=== PATIENT | male | born 1935 | race Caucasian/White ===

== ENCOUNTER 2020-11-30 10:34 | Inpatient (IN) | payer MEDICARE, OTHER ==
[~2020-11-30] VITALS: Ht 172.7 cm; Wt 92.0 kg
[~2020-11-30 10:34] MED LIST: AMLO-150 PO; DICL50TA4 PO; FINA5TAB4 PO; FOLI1TAB47 PO; LORA-446 PO; LORA10TA75 PO; OXYB5TAB10 PO; PSYL0.5215 PO; TRAZ-175 PO
[2020-11-30 11:49] VITALS: BP 125/77
[2020-11-30] MEDS ORDERED: ALPRAZOLAM PO (11:53)
[2020-11-30] MEDS ORDERED: SIMVASTATIN PO (11:53)
[2020-11-30] MEDS ORDERED: CHLORHEXIDINE 15 ML UDC ONE (11:54)
[2020-11-30] MEDS ORDERED: CHLORHEXIDINE 15 ML UDC MM ONE (12:00)
[2020-11-30] MEDS ORDERED: LACTATED RINGERS 1,000 ML IV SCH (12:00)
[2020-11-30] MEDS ORDERED: DEXAMETHASONE 4 MG/ML, 1ML ONE ×2 (13:26)
[2020-11-30] MEDS ORDERED: ROCURONIUM 10MG/ML,5ML ONE (13:26)
[2020-11-30] MEDS ORDERED: FENTANYL PF 250 MCG/5ML ONE (13:26)
[2020-11-30] MEDS ORDERED: PROPOFOL 10 MG/ML, 20ML ONE (13:26)
[2020-11-30] MEDS ORDERED: SUCCINYLCHOLINE 20 MG/ML, 10ML ONE (13:26)
[2020-11-30] MEDS ORDERED: GEMCITABINE HCL IV ONE (13:30)
[2020-11-30] MEDS ORDERED: LIDOCAINE-MPF 2% ,5ML ONE (13:30)
[2020-11-30] MEDS ORDERED: SODIUM CHLORIDE 0.9% IV ONE (13:30)
[2020-11-30] MEDS ORDERED: CEFAZOLIN 1,000 MG ONE ×2 (13:33→13:50)
[2020-11-30] MEDS ORDERED: ONDANSETRON 2MG/ML, 2ML ONE ×2 (13:50)
[2020-11-30] MEDS ORDERED: MEPERIDINE/PF 25MG/0.5ML IVPush PRN (14:00)
[2020-11-30] MEDS ORDERED: EPHEDRINE 50 MG/ML, 1ML IVPush PRN (14:00)
[2020-11-30] MEDS ORDERED: hydrALAzine 20 MG/ML, 1ML IV PRN (14:00)
[2020-11-30] MEDS ORDERED: ALBUTEROL SULFATE 2.5 MG/3 ML NPPB PRN (14:00)
[2020-11-30] MEDS ORDERED: MIDAZOLAM 1 MG/ML, 2ML IV PRN (14:00)
[2020-11-30] MEDS ORDERED: DIAZEPAM 5 MG/ML, 2ML IVPush PRN (14:00)
[2020-11-30] MEDS ORDERED: HYDROmorphone 1 MG/ML, 1ML INJ IVPush PRN (14:00)
[2020-11-30] MEDS ORDERED: PROMETHAZINE 25 MG/ML, 1ML IVPush PRN (14:00)
[2020-11-30] MEDS ORDERED: PROMETHAZINE 12.5 MG SUPP PR PRN (14:00)
[2020-11-30] MEDS ORDERED: OXYcodone 5 MG/5 ML ORAL.SOL UDC PO PRN (14:00)
[2020-11-30] MEDS ORDERED: ONDANSETRON 2MG/ML, 2ML IVPush PRN ×2 (14:00→14:30)
[2020-11-30] MEDS ORDERED: LABETALOL 5MG/ML, 20ML IV PRN (14:00)
[2020-11-30] MEDS ORDERED: DIPHENHYDRAMINE 50 MG/ML, 1ML IVPush PRN ×2 (14:00)
[2020-11-30] MEDS ORDERED: OPIUM/BELLADONNA SUPP.RECT 16.2-30 MG ONE (14:13)
[2020-11-30] MEDS ORDERED: LORATADINE 10 MG TABLET PO PRN (14:30)
[2020-11-30] MEDS: OPIUM/BELLADONNA SUPP.RECT 16.2-30 MG PR PRN (14:43)
[2020-11-30] MEDS ORDERED: FENTANYL PF 100 MCG/2ML ONE (14:45)
[2020-11-30] MEDS ORDERED: OXYcodone 5 MG/5 ML ORAL.SOL UDC ONE (14:46)
[2020-11-30] MEDS: FENTANYL PF 100 MCG/2ML IV PRN ×2 (14:48→14:55)
[2020-11-30] MEDS: CIPROFLOXACIN/PMX 400MG/200ML 200 ML IVPB SCH (17:22)
[2020-11-30] MEDS: D5%-LACTATED RINGERS 1,000 ML IV SCH (17:22)
[2020-11-30] MEDS ORDERED: ALPRazolam 1MG TAB PO SCH (17:30)
[2020-11-30 18:42] VITALS: BP 133/83
[2020-11-30] MEDS ORDERED: TRAZODONE 100MG TABLET PO SCH (21:00)
[2020-12-01 01:25] VITALS: BP 111/67
[2020-12-01] MEDS: OPIUM/BELLADONNA SUPP.RECT 16.2-30 MG PR PRN ×2 (02:14→14:22)
[2020-12-01] MEDS: D5%-LACTATED RINGERS 1,000 ML IV SCH (04:19)
[2020-12-01] MEDS: CIPROFLOXACIN/PMX 400MG/200ML 200 ML IVPB SCH (04:23)
[2020-12-01 06:54] VITALS: BP 133/71
[2020-12-01] MEDS ORDERED: FOLIC ACID PO SCH (09:00)
[2020-12-01] MEDS ORDERED: OXYBUTYNIN CHLORIDE 5 MG TABLET PO SCH (09:00)
[2020-12-01] MEDS ORDERED: MULTIVITS MIN PO SCH (09:00)
[2020-12-01] MEDS ORDERED: LUT PO SCH (09:00)
[2020-12-01] MEDS ORDERED: DOCUSATE 100 MG CAPSULE PO PRN (09:00)
[2020-12-01] MEDS ORDERED: SIMVASTATIN PO SCH (09:00)
[2020-12-01] MEDS ORDERED: DICLOFENAC 50 MG TABLET.DR PO SCH (09:00)
[2020-12-01] MEDS ORDERED: FINASTERIDE 5 MG TABLET PO SCH (09:00)
[2020-12-01] MEDS ORDERED: AMLODIPINE 5 MG TABLET PO SCH (09:00)
[2020-12-01] MEDS ORDERED: LORazepam 1MG TABLET PO SCH (09:00)
[2020-12-01] MEDS ORDERED: DOCUSATE 100 MG CAPSULE ONE (09:04)
[2020-12-01 13:27] VITALS: BP 107/65
== END 2020-12-01 14:39 | disposition home or self-care (01) | DRG 670 ==
LOC: OUT 10:34 → 4NW 14:06 → DCLOUNGE 12-01 14:32
PROVIDERS: ADMIT Urology; ATTEND Urology
PROC: 0TBB3ZX Excision of Bladder, Percutaneous Approach, Diagnostic (ICD-10-PCS; 2020-11-30)
PROC: 3E0K805 Introduction of Other Antineoplastic into Genitourinary Tract, Via Natural or Artificial Opening Endoscopic (ICD-10-PCS; 2020-11-30)
PROC: 0TBC8ZZ Excision of Bladder Neck, Via Natural or Artificial Opening Endoscopic (ICD-10-PCS; principal; 2020-11-30 13:00)
DX: D49.4 Neoplasm of unspecified behavior of bladder (principal)
CPT/HCPCS: 88305; G0378; J0690; J0744; J1100; J2405; J2704; J3010; J0330; J7120; J7121; J9201

== ENCOUNTER → 2021-05-02 | Outpatient (CLI) | payer MEDICARE, OTHER ==
[~2021-05-02] MED LIST changes: +ALPRAZOLAM PO; +SIMV20TA19 PO; +SIMVASTATIN PO
[2021-05-02 15:11] LABS: BASOPHILS % (AUTO) 1 % (0-1); EOSINOPHILS % (AUTO) 1 % (1-7); LYMPHOCYTES % (AUTO) 17 % (22-44); MEAN CORPUSCULAR HEMOGLOBIN 31.3 pg (27.5-34.5); MEAN CORPUSCULAR HGB CONC 33.5 g/dL (33.2-36.2); MONOCYTES % (AUTO) 10 % (2-9); NEUTROPHILS % (AUTO) 72 % (42-75); PLATELET COUNT 301 x10^3/uL (130-400); RED BLOOD COUNT 4.86 x10^6/uL (4.38-5.82); RED CELL DISTRIBUTION WIDTH 13.7 % (9.4-14.8)
[2021-05-02 15:16] LABS: CALCIUM 8.9 mg/dL (8.5-10.1); CREATININE 1.61 mg/dL (0.7-1.3)
[2021-05-02 15:24] LABS: CHLORIDE 108 mmol/L (98-107)
[2021-05-02 15:25] LABS: ANION GAP 4 mmol/L (5-15)
[2021-05-02 15:44] LABS: MICROSCOPIC INDICATED
[2021-05-02 15:44] LABS: INTERNATIONAL NORMALIZED RATIO 0.98 (0.93-1.1); PROTHROMBIN TIME 10.5 Seconds (9.6-11.5)
== END | disposition home or self-care (01) ==
LOC: STAR 13:59
PROVIDERS: ATTEND Urology
DX: Z01.818 Encounter for other preprocedural examination (principal); C67.9 Malignant neoplasm of bladder, unspecified
CPT/HCPCS: 36415; 80048; 81001; 85025; 85610; 85730; 87086; 93005

== ENCOUNTER 2021-05-06 13:44 | Inpatient (IN) | payer MEDICARE, OTHER ==
[~2021-05-06] VITALS: Ht 172.7 cm; Wt 87.0 kg
[2021-05-06] MEDS ORDERED: CHLORHEXIDINE 15 ML UDC ONE (14:18)
[2021-05-06] MEDS ORDERED: LACTATED RINGERS 1,000 ML IV SCH (14:30)
[2021-05-06] MEDS ORDERED: SODIUM CHLORIDE 0.9% PF 10ML ONE (16:18)
[2021-05-06] MEDS ORDERED: FENTANYL PF 100 MCG/2ML ONE ×3 (16:21→19:03)
[2021-05-06] MEDS ORDERED: CEFAZOLIN 1,000 MG ONE (16:23)
[2021-05-06] MEDS ORDERED: ONDANSETRON 2MG/ML, 2ML ONE ×2 (16:23→19:04)
[2021-05-06] MEDS ORDERED: ROCURONIUM 10MG/ML,5ML ONE (16:23)
[2021-05-06] MEDS ORDERED: NEOSTIGMINE 1 MG/ML, 10ML ONE (16:23)
[2021-05-06] MEDS ORDERED: GLYCOPYRROLATE 0.2MG/1ML, 5ML ONE (16:23)
[2021-05-06] MEDS ORDERED: PROPOFOL 10 MG/ML, 20ML ONE (16:23)
[2021-05-06] MEDS ORDERED: SUCCINYLCHOLINE 20 MG/ML, 10ML ONE (16:23)
[2021-05-06] MEDS ORDERED: DEXAMETHASONE 4 MG/ML, 1ML ONE (16:23)
[2021-05-06] MEDS ORDERED: HYDROmorphone 1 MG/ML, 1ML INJ IVPush PRN ×2 (16:30→23:00)
[2021-05-06] MEDS ORDERED: ACETAMINOPHEN 325 MG TABLET PO PRN ×2 (16:30→17:30)
[2021-05-06] MEDS ORDERED: OXYcodone 5 MG/5 ML ORAL.SOL UDC PO PRN ×2 (16:30→17:30)
[2021-05-06] MEDS ORDERED: PROMETHAZINE 25 MG/ML, 1ML IVPush PRN (16:30)
[2021-05-06] MEDS ORDERED: LABETALOL 5MG/ML, 20ML IV PRN ×2 (16:30→17:30)
[2021-05-06] MEDS ORDERED: FENTANYL PF 100 MCG/2ML IV PRN (16:30)
[2021-05-06] MEDS ORDERED: EPHEDRINE 50 MG/ML, 1ML IVPush PRN (16:30)
[2021-05-06] MEDS ORDERED: GEMCITABINE HCL 1,000 MG in SODIUM CHLORIDE 0.9% 23.7 ML IS ONE (16:30)
[2021-05-06] MEDS ORDERED: ONDANSETRON 2MG/ML, 2ML IVPush PRN (16:30)
[2021-05-06] MEDS ORDERED: hydrALAzine 20 MG/ML, 1ML IV PRN ×2 (16:30→17:30)
[2021-05-06] MEDS ORDERED: FLUORESCEIN SODIUM 500 MG/5 ML ONE (17:07)
[2021-05-06] MEDS ORDERED: HYDROmorphone 2 MG/ML, 1ML IVPush PRN (17:30)
[2021-05-06] MEDS ORDERED: DIAZEPAM 5 MG/ML, 2ML IVPush PRN (17:30)
[2021-05-06] MEDS ORDERED: ALBUTEROL SULFATE 2.5 MG/3 ML NPPB PRN (17:30)
[2021-05-06] MEDS ORDERED: MEPERIDINE/PF 25MG/0.5ML IVPush PRN (17:30)
[2021-05-06] MEDS ORDERED: PROMETHAZINE 25 MG/ML, 1ML IV PRN (17:30)
[2021-05-06] MEDS ORDERED: KETOROLAC 30 MG/1 ML IV PRN (17:30)
[2021-05-06] MEDS ORDERED: OPIUM/BELLADONNA SUPP.RECT 16.2-30 MG ONE (17:32)
[2021-05-06] MEDS: FENTANYL PF 100 MCG/2ML IV PRN ×4 (18:05→19:15)
[2021-05-06] MEDS ORDERED: ACETAMINOPHEN 650 MG/20.3 ML UDC ONE (19:03)
[2021-05-06] MEDS ORDERED: OXYcodone 5 MG/5 ML ORAL.SOL UDC ONE (19:03)
[2021-05-06 20:10] VITALS: BP 148/78
[2021-05-06] MEDS ORDERED: SIMVASTATIN 20 MG TABLET PO SCH (22:38)
[2021-05-06] MEDS: D5%-LACTATED RINGERS 1,000 ML IV SCH (22:47)
[2021-05-06] MEDS: TRAZODONE 100MG TABLET PO PRN (22:47)
[2021-05-06] MEDS ORDERED: ONDANSETRON 2MG/ML, 2ML IV PRN (23:00)
[2021-05-07] VITALS (7 sets, daily range): BP systolic 101–129; BP diastolic 57–75
[2021-05-07 05:08] LABS: ANION GAP 4 mmol/L (5-15); CALCIUM 8.4 mg/dL (8.5-10.1); CHLORIDE 104 mmol/L (98-107)
[2021-05-07 05:10] LABS: CREATININE 1.47 mg/dL (0.7-1.3)
[2021-05-07] MEDS: AMLODIPINE 5 MG TABLET PO SCH (08:03)
[2021-05-07] MEDS: OXYBUTYNIN CHLORIDE 5 MG TABLET PO SCH (08:03)
[2021-05-07] MEDS: D5%-LACTATED RINGERS 1,000 ML IV SCH ×2 (08:03→18:27)
[2021-05-07] MEDS: SIMVASTATIN 5 MG TABLET PO SCH (08:03)
[2021-05-07] MEDS ORDERED: FINASTERIDE 5 MG TABLET PO SCH (09:00)
[2021-05-07] MEDS ORDERED: OPIUM/BELLADONNA SUPP.RECT 16.2-30 MG PR PRN (11:00)
[2021-05-07 11:40] LABS: INTERNATIONAL NORMALIZED RATIO 1.01 (0.93-1.1); PROTHROMBIN TIME 10.8 Seconds (9.6-11.5)
[2021-05-07] MEDS: FINASTERIDE 5 MG TABLET PO SCH (20:41)
[2021-05-07] MEDS: TRAZODONE 100MG TABLET PO PRN (20:48)
[2021-05-08 00:32] VITALS: BP 127/66
[2021-05-08] MEDS: D5%-LACTATED RINGERS 1,000 ML IV SCH ×2 (03:32→18:02)
[2021-05-08 06:07] LABS: BASOPHILS % (AUTO) 1 % (0-1); EOSINOPHILS % (AUTO) 6 % (1-7); LYMPHOCYTES % (AUTO) 10 % (22-44); MEAN CORPUSCULAR HEMOGLOBIN 31.4 pg (27.5-34.5); MEAN CORPUSCULAR HGB CONC 33.8 g/dL (33.2-36.2); MEAN PLATELET VOLUME 8.6 fL (7.4-10.4); MONOCYTES % (AUTO) 10 % (2-9); NEUTROPHILS % (AUTO) 74 % (42-75); PLATELET COUNT 202 x10^3/uL (130-400); RED BLOOD COUNT 4.21 x10^6/uL (4.38-5.82); RED CELL DISTRIBUTION WIDTH 13.5 % (9.4-14.8)
[2021-05-08 06:17] LABS: ANION GAP 4 mmol/L (5-15); CALCIUM 8.2 mg/dL (8.5-10.1); CHLORIDE 108 mmol/L (98-107)
[2021-05-08 06:19] LABS: CREATININE 1.49 mg/dL (0.7-1.3)
[2021-05-08 07:04] VITALS: BP 126/69
[2021-05-08] MEDS: OXYBUTYNIN CHLORIDE 5 MG TABLET PO SCH (07:49)
[2021-05-08] MEDS: SIMVASTATIN 5 MG TABLET PO SCH (07:49)
[2021-05-08] MEDS: AMLODIPINE 5 MG TABLET PO SCH (07:49)
[2021-05-08] MEDS ORDERED: ACETAMINOPHEN 325 MG TABLET PO PRN (09:30)
[2021-05-08] MEDS ORDERED: FLUMAZENIL 0.1 MG/1 ML, 5ML ONE (09:47)
[2021-05-08] MEDS ORDERED: NALOXONE 1 MG/ML, 2ML ONE (09:47)
[2021-05-08] MEDS ORDERED: MIDAZOLAM 1 MG/ML, 5ML ONE (09:47)
[2021-05-08] MEDS ORDERED: FENTANYL PF 100 MCG/2ML ONE (09:47)
[2021-05-08] MEDS ORDERED: LIDOCAINE 1%, 20ML ONE (09:48)
[2021-05-08] MEDS: OXYcodone IR 5MG TABLET PO PRN ×2 (12:12→22:55)
[2021-05-08 12:47] VITALS: BP 105/50
[2021-05-08] MEDS ORDERED: BISACODYL 10 MG SUPP PR PRN (13:00)
[2021-05-08] MEDS ORDERED: POLYETHYLENE GLYCOL 17 GM PACKET PO PRN (13:00)
[2021-05-08 18:57] VITALS: BP 122/71
[2021-05-08] MEDS: TRAZODONE 100MG TABLET PO PRN (20:35)
[2021-05-08] MEDS: FINASTERIDE 5 MG TABLET PO SCH (20:36)
[2021-05-09 00:07] VITALS: BP 134/67
[2021-05-09] MEDS: D5%-LACTATED RINGERS 1,000 ML IV SCH ×2 (03:09→13:00)
[2021-05-09 04:22] VITALS: BP 127/71
[2021-05-09 06:05] LABS: CALCIUM 8.3 mg/dL (8.5-10.1); CREATININE 1.42 mg/dL (0.7-1.3)
[2021-05-09 06:18] LABS: ANION GAP 3 mmol/L (5-15); CHLORIDE 108 mmol/L (98-107)
[2021-05-09 07:05] VITALS: BP 124/69
[2021-05-09] MEDS: OXYBUTYNIN CHLORIDE 5 MG TABLET PO SCH (08:09)
[2021-05-09] MEDS: SIMVASTATIN 5 MG TABLET PO SCH (08:09)
[2021-05-09] MEDS: AMLODIPINE 5 MG TABLET PO SCH (08:10)
[2021-05-09] MEDS: OXYcodone IR 5MG TABLET PO PRN (08:11)
[2021-05-09] MEDS ORDERED: DOCUSATE 100 MG CAPSULE PO PRN (09:00)
[2021-05-09 14:30] VITALS: BP 137/69
== END 2021-05-09 13:30 | disposition home or self-care (01) | DRG 657 ==
LOC: OR 13:44 → 4NE 20:10 → OR 20:50 → 4NE 21:12 → OBSVTOIN 21:12 → DCLOUNGE 05-09 13:24
PROVIDERS: ADMIT Urology; ATTEND Urology
PROC: 0T9B70Z Drainage of Bladder with Drainage Device, Via Natural or Artificial Opening (ICD-10-PCS; 2021-05-06)
PROC: 3E0K805 Introduction of Other Antineoplastic into Genitourinary Tract, Via Natural or Artificial Opening Endoscopic (ICD-10-PCS; 2021-05-06)
PROC: 0TBB8ZZ Excision of Bladder, Via Natural or Artificial Opening Endoscopic (ICD-10-PCS; principal; 2021-05-06 15:30)
PROC: 0T9480Z Drainage of Left Kidney Pelvis with Drainage Device, Via Natural or Artificial Opening Endoscopic (ICD-10-PCS; 2021-05-08)
PROC: BT121ZZ Fluoroscopy of Left Kidney using Low Osmolar Contrast (ICD-10-PCS; 2021-05-08)
PROC: BT42ZZZ Ultrasonography of Left Kidney (ICD-10-PCS; 2021-05-08)
DX: C67.9 Malignant neoplasm of bladder, unspecified (principal); N17.9 Acute kidney failure, unspecified; N13.30 Unspecified hydronephrosis; Z88.5 Allergy status to narcotic agent; Z85.51 Personal history of malignant neoplasm of bladder; Z88.8 Allergy status to other drugs, medicaments and biological substances; Z88.1 Allergy status to other antibiotic agents; Z88.2 Allergy status to sulfonamides
CPT/HCPCS: 36415; 50432; 74176; 76942; 80048; 85025; 85610; 85730; 88307; 99156; 99157; G0378; J0690; J1100; J1170; J2250; J2405; J2704; J2710; J3010; J9201; C1729; J0330; J2310; J7120; J7121

== ENCOUNTER 2021-06-29 10:40 | Day surgery (SDC) | payer MEDICARE, OTHER ==
[~2021-06-29] VITALS: Ht 175.3 cm; Wt 88.2 kg
[2021-06-29 11:22] VITALS: BP 128/73
[2021-06-29] MEDS ORDERED: SODIUM CHLORIDE 0.9% 1,000 ML IV SCH (11:30)
[2021-06-29] MEDS ORDERED: FENTANYL PF 100 MCG/2ML ONE (11:52)
[2021-06-29] MEDS ORDERED: MIDAZOLAM 1 MG/ML, 5ML ONE (11:52)
[2021-06-29] MEDS ORDERED: FLUMAZENIL 0.1 MG/1 ML, 5ML ONE (11:53)
[2021-06-29] MEDS ORDERED: NALOXONE 1 MG/ML, 2ML ONE (11:53)
== END 2021-06-29 14:00 | disposition home or self-care (01) ==
LOC: OUT 10:40 → EDSTATUS 12:30 → OUT 14:00
PROVIDERS: ATTEND Urology
DX: C67.9 Malignant neoplasm of bladder, unspecified (principal); I10 Essential (primary) hypertension; E78.00 Pure hypercholesterolemia, unspecified; G47.30 Sleep apnea, unspecified; Z88.5 Allergy status to narcotic agent; Z88.8 Allergy status to other drugs, medicaments and biological substances; Z88.2 Allergy status to sulfonamides; Z79.899 Other long term (current) drug therapy; Z72.89 Other problems related to lifestyle; Z88.1 Allergy status to other antibiotic agents; Z87.891 Personal history of nicotine dependence; Z98.890 Other specified postprocedural states
CPT/HCPCS: 32408; 99156; 99157; J2250; J3010; J7030; 77012; J2310